=== PATIENT | female | born 1985 | race Two or more races ===

== ENCOUNTER 2016-12-14 00:20 | Emergency (ER) | payer SELFPAY ==
[~2016-12-14] VITALS: Ht 157.5 cm; Wt 90.7 kg
[~2016-12-14 00:20] MED LIST: ADVIL200 M1 PO; BACITRACIN15 GM TOP; IBUPROFEN800 MG PO; OMEPRAZOLE20 MG PO; OXYCODONE-ACET1 EAC1 PO; PROVENTIL HFA6.7 GM INH; PROZAC40 MG PO; SENNA-TIME S T1 EACH PO
[2016-12-14] MEDS ORDERED: DULERA 200 MCG/13 GM INH (00:36)
[2016-12-14] MEDS ORDERED: PREDNISONE20 MG PO (00:37)
[2016-12-14] MEDS ORDERED: ALBUTEROL2.5 MG/3 M INH (00:39)
== END 2016-12-14 01:22 | disposition home or self-care (01) ==
LOC: ED 00:20
DX: J45.901 Unspecified asthma with (acute) exacerbation (principal); Z90.710 Acquired absence of both cervix and uterus; Z88.6 Allergy status to analgesic agent; Z79.899 Other long term (current) drug therapy; Z79.52 Long term (current) use of systemic steroids
CPT/HCPCS: 99282

== ENCOUNTER 2020-01-14 11:25 | Emergency (ER) | payer BC ==
[~2020-01-14] VITALS: Ht 157.5 cm; Wt 90.7 kg
[~2020-01-14 11:25] MED LIST changes: +ALBUTEROL2.5 MG/3 M INH; +DULERA 200 MCG/13 GM INH; +PREDNISONE20 MG PO
--- OUTSIDE RECORDS SUMMARY | 2020-01-14 11:28 | XMS ---
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 EGriselda VISIT COUNT (12 MO.) 1 [facility] TOTAL 1 NOTE: Visits indicate total known visits. ED/UCC VISIT TRACKING (12 MO.) 01/14/2020 11:27 [facility] TYPE: Emergency COMPLAINT: - SOB INPATIENT VISIT TRACKING (12 MO.) No inpatient visits to display in this time frame [email or web address]
[2020-01-14] MEDS ORDERED: PREDNISONE10 MG PO (11:41)
[2020-01-14] MEDS ORDERED: SYMBICORT 16010.2 GM INH (11:42)
== END 2020-01-14 14:46 | disposition home or self-care (01) ==
LOC: ED 11:25
DX: R06.00 Dyspnea, unspecified (principal); Z79.899 Other long term (current) drug therapy; Z79.52 Long term (current) use of systemic steroids
CPT/HCPCS: 71045; 99284-25